=== PATIENT | male | born 1935 | race Caucasian/White ===

== ENCOUNTER 2017-06-17 12:15 | Emergency (ER) | payer MEDICARE, BC ==
[~2017-06-17] VITALS: Ht 180.3 cm; Wt 108.8 kg
[~2017-06-17 12:15] MED LIST: 1-ME1LIQ PO; CO Q60CA2 PO; CORE12.5 PO; COUM5TAB PO; DYAZ PO; EZET10 PO; LIVA1TAB PO; OMEG500C PO; SM A81CH CHEW
[2017-06-17] MEDS ORDERED: CARV12.52 PO (12:29)
[2017-06-17] MEDS ORDERED: COQ-100C5 PO (12:29)
[2017-06-17] MEDS ORDERED: ASPI81TA11 PO (12:29)
[2017-06-17] MEDS ORDERED: DYAZ37.5 PO (12:29)
[2017-06-17] MEDS ORDERED: VITA2000 PO (12:29)
[2017-06-17] MEDS ORDERED: AMLO10TA2 PO (12:29)
[2017-06-17] MEDS ORDERED: PRAV40TA2 PO (12:29)
[2017-06-17] MEDS ORDERED: OMEGCAP PO (12:29)
[2017-06-17 12:30] VITALS: BP 157/72; PULSE 69; RESP 18; TEMP 99.1; O2SAT 93
[2017-06-17 12:35] VITALS: RESP 16; O2SAT 93
[2017-06-17 12:57] LABS: AUTOMATED NEUTROPHIL # 4.5 TH/MM3 (1.8-7.7); BASOPHIL # 0.1 TH/MM3 (0-0.2); BASOPHIL % 0.7 % (0.0-2.0); EOSINOPHIL # 0.1 TH/MM3 (0-0.4); EOSINOPHIL % 1.4 % (0.0-4.0); HEMATOCRIT 48.1 % (39.0-51.0); HEMO FLAGS DIFF FINAL; LYMPH % 33.7 % (9.0-44.0); LYMPHOCYTE # 2.7 TH/MM3 (1.0-4.8); MEAN CELL VOLUME 92.9 FL (80.0-100.0); MEAN CORPUSCULAR HGB CONC 33.3 % (32.0-36.0); MONO % 8.1 % (0.0-8.0); NEUT % 56.1 % (16.0-70.0); PLATELET COUNT 220 TH/MM3 (150-450); RED BLOOD COUNT 5.18 MIL/MM3 (4.50-5.90); RED CELL DISTRIBUTION WIDTH 13.1 % (11.6-17.2); WHITE BLOOD COUNT 8.1 TH/MM3 (4.0-11.0)
[2017-06-17] MEDS ORDERED: SODIUM CHLORIDE 0.9% FLUSH 10 ML FLUSH IVF PRN (13:00)
[2017-06-17 13:06] LABS: CHLORIDE 104 MEQ/L (98-107); POTASSIUM 3.9 MEQ/L (3.5-5.1); SODIUM (NA) 138 MEQ/L (136-145)
[2017-06-17 13:10] LABS: ANION GAP 6 MEQ/L (5-15); BICARBONATE 27.9 MEQ/L (21.0-32.0); BLOOD UREA NITROGEN 26 MG/DL (7-18)
--- NOTE | 2017-06-17 13:11 | PD ---
HPI Chief Complaint: Respiratory Symptoms Time Seen by Provider: 12:36 Travel History International Travel<30 days: No Contact w/Intl Traveler<30days: No Traveled to known affect area: No History of Present Illness HPI This is an 82-year-old male who presents to the emergency department sent by his primary doctor because he was reporting shortness of breath for 2 months. Patient reports that he's been having trouble breathing intermittently for 2 months, feeling like he can't get a deep breath and feeling like he only take three quarters of a fall breath. His symptoms are constant, mild, with no associated fevers or chills. He denies any cough. He was diagnosed with pulmonary emboli in 2012 is not currently on any anticoagulation. [facility] Past Medical History Arthritis: Yes Heart Rhythm Problems: No Cancer: No Cardiovascular Problems: Yes High Cholesterol: Yes Chest Pain: Yes Congestive Heart Failure: No Coronary Artery Disease: Yes Endocrine: No Genitourinary: Yes Hypertension: Yes Immune Disorder: No Kidney Stones: Yes (12 YEARS AGO) Neurologic: No Psychiatric: No Reproductive: No Respiratory: No Past Surgical History Abdominal Surgery: No Cardiac Surgery: Yes (CARDIAC STINTS X2) Coronary Stent: Yes Ear Surgery: No Endocrine Surgery: No Eye Surgery: No Genitourinary Surgery: No Gynecologic Surgery: No Oral Surgery: No Thoracic Surgery: No Other Surgery: Yes Social History Alcohol Use: No Tobacco Use: No (QUIT 20 YEARS AGO) Substance Use: No Allergies-Medications (Allergen,Severity, Reaction): Coded Allergies: No Known Allergies (Verified , 06/17/17) Reported Meds & Prescriptions Reported Meds & Active Scripts Active Reported Vitamin D3 (Cholecalciferol) 2,000 Unit Cap 2,000 Units PO DAILY Pravastatin 40 Mg Tab 40 Mg PO HS Carvedilol 12.5 Mg Tab 12.5 Mg PO BID Dyazide (Triamterene-Hydrochlorothiazide) 37.5-25 Mg Cap 1 Cap PO DAILY Amlodipine (Amlodipine Besylate) 10 Mg Tab 10 Mg PO DAILY Aspirin EC (Aspirin) 81 Mg Tabdr 81 Mg PO DAILY [place]-3 Fish Oil/Vitamin (Fish Oil-Cholecalciferol) 1,000-1,000 Mg Cap 1 Cap PO DAILY Coq-10 Tr (Coenzyme Q10 (Ubidecarenone)) 100 Mg Cap 100 Mg PO DAILY Review of Systems Except as stated in HPI: all other systems reviewed are Neg Physical Exam Narrative GENERAL:Well appearing, no acute distress SKIN: Focused skin assessment warm and dry. HEAD: Atraumatic. Normocephalic. EYES: Pupils equal and round. No injection or drainage. ENT: Moist mucous membranes NECK: Trachea midline. CARDIOVASCULAR: Regular rate and rhythm. No murmur appreciated. RESPIRATORY: Clear to auscultation. Breath sounds equal bilaterally. GASTROINTESTINAL: Abdomen soft, non-tender, nondistended. MUSCULOSKELETAL: No obvious deformities. NEUROLOGICAL: Awake and alert. No obvious cranial nerve deficits. Moving all extremities. PSYCHIATRIC: Appropriate mood and affect; insight and judgment normal. Data Data Last Documented VS Vital Signs Date Time Temp Pulse Resp B/P (MAP) Pulse Ox O2 Delivery O2 Flow Rate FiO2 06/17/17 13:31 66 16 139/71 (93) 93 Room Air 06/17/17 12:30 99.1 Orders Orders Complete Blood Count With Diff (06/17/17 12:49) Comprehensive Metabolic Panel (06/17/17 12:49) B-Type Natriuretic Peptide (06/17/17 12:49) Iv Access Insert/Monitor (06/17/17 12:49) Ecg Monitoring (06/17/17 12:49) Oximetry (06/17/17 12:49) Oxygen Administration (06/17/17 12:49) Ct Pulmonary Angiogram (06/17/17 12:49) Sodium Chloride 0.9% Flush (Ns Flush) (06/17/17 13:00) Iohexol 350 Inj (Omnipaque 350 Inj) (06/17/17 13:49) Labs Laboratory Tests Test 06/17/17 12:45 White Blood Count 8.1 TH/MM3 Red Blood Count 5.18 MIL/MM3 Hemoglobin 16.0 GM/DL Hematocrit 48.1 % Mean Corpuscular Volume 92.9 FL Mean Corpuscular Hemoglobin 31.0 PG Mean Corpuscular Hemoglobin Concent 33.3 % Red Cell Distribution Width 13.1 % Platelet Count 220 TH/MM3 Mean Platelet Volume 7.6 FL Neutrophils (%) (Auto) 56.1 % Lymphocytes (%) (Auto) 33.7 % Monocytes (%) (Auto) 8.1 % Eosinophils (%) (Auto) 1.4 % Basophils (%) (Auto) 0.7 % Neutrophils # (Auto) 4.5 TH/MM3 Lymphocytes # (Auto) 2.7 TH/MM3 Monocytes # (Auto) 0.7 TH/MM3 Eosinophils # (Auto) 0.1 TH/MM3 Basophils # (Auto) 0.1 TH/MM3 CBC Comment DIFF FINAL Differential Comment Blood Urea Nitrogen 26 MG/DL Creatinine 1.30 MG/DL Random Glucose 117 MG/DL Total Protein 7.4 GM/DL Albumin 3.7 GM/DL Calcium Level 8.9 MG/DL Alkaline Phosphatase 88 U/L Aspartate Amino Transf (AST/SGOT) 11 U/L Alanine Aminotransferase (ALT/SGPT) 25 U/L Total Bilirubin 0.7 MG/DL Sodium Level 138 MEQ/L Potassium Level 3.9 MEQ/L Chloride Level 104 MEQ/L Carbon Dioxide Level 27.9 MEQ/L Anion Gap 6 MEQ/L Estimat Glomerular Filtration Rate 53 ML/MIN B-Type Natriuretic Peptide 28 PG/ML MDM Medical Decision Making Medical Screen Exam Complete: Yes Emergency Medical Condition: Yes Interpretation(s) Afebrile, mild hypertension, mild hypoxia No leukocytosis Electrolytes are reassuring BMP is normal Last [address] Angiography 06/17/17 1249 Signed Impressions: Service Date/Time: Saturday, June 17, 2017 13:42 - CONCLUSION: 1. No evidence of pulmonary embolus. 2. Chronic airway disease with subsegmental bronchiectasis 3. No acute consolidating infiltrate. 4. Calcific coronary artery disease 5. Left renal cyst. Corey Mg MD Differential Diagnosis Pulmonary embolism, COPD exacerbation, congestive heart failure, pneumonia Narrative Course This is an 82-year-old male who presents to the emergency department with some shortness of breath it's been going on for months that he discussed at his routine primary care physician's appointment. He has a history of pulmonary embolism that he was sent in to be evaluated. Labs and CT pulmonary angiogram are reassuring with no evidence of embolism. Patient will be prescribed an inhaler and can follow-up with his primary care physician. Diagnosis Primary Impression: Chronic airway disease Qualified Codes: J41.0 - Simple chronic bronchitis Patient Instructions: General Instructions Additional Instructions: If you develop severe chest pain, shortness of breath, sweating, lightheadedness , dizziness or difficulty breathing return to the emergency department immediately. Followup with your primary care physician in 2-3 days if your symptoms are not resolved. Med/Other Pt SpecificInfo: Prescription(s) given Scripts Albuterol 8.5 GM Inh (Proair Hfa 8.5 GM Inh) 90 Mcg/Act Aer 2 PUFF INH Q4-6H Y for SHORTNESS OF BREATH, #1 INHALER 0 Refills 108 mcg/actuation Prov: Tiffany Sullivan MD 06/17/17 Disposition: 01 DISCHARGE HOME Condition: Stable Tiffany Sullivan MD Jun 17, 2017 13:11
[2017-06-17 13:13] LABS: ALT (GPT) 25 U/L (12-78); AST (GOT) 11 U/L (15-37); GLOMERULAR FILTRATION RATE 53 ML/MIN (>89)
[2017-06-17 13:14] LABS: TOTAL BILIRUBIN ADULT 0.7 MG/DL (0.2-1.0)
[2017-06-17 13:16] LABS: ALKALINE PHOSPHATASE 88 U/L (45-117)
[2017-06-17 13:31] VITALS: BP 139/71; PULSE 66; RESP 16; O2SAT 93
[2017-06-17] MEDS ORDERED: IOHEXOL 350 MG/ML 10 ML VIAL (for RAD DIAG) IVCONTRAST ONE (13:49)
--- NOTE | 2017-06-17 14:13 | RADRPT ---
EXAM DATE/TIME: 06/17/2017 13:42 [facility] COMPARISON: No previous studies available for comparison. INDICATIONS : Increased shortness of breath for several months. IV CONTRAST: 65 cc Omnipaque 350 (iohexol) IV RADIATION DOSE: 20.99 CTDIvol (mGy) MEDICAL HISTORY : Cardiovascular disease. Hypertension. SURGICAL HISTORY : Coronary artery stent. ENCOUNTER: Initial ACUITY: 7 - 11 months PAIN SCALE: 0/10 LOCATION: chest TECHNIQUE: Volumetric scanning of the chest was performed using a pulmonary embolism protocol MIP images were re constructed. Using automated exposure control and adjustment of the mA and/or kV according to patien t size, radiation dose was kept as low as reasonably achievable to obtain optimal diagnostic quality images. DICOM format image data is available electronically for review and comparison. Follow-up recommendations for detected pulmonary nodules are based at a minimum on nodule size and pa tient risk factors according to Fleischner Society Guidelines. FINDINGS: PULMONARY ARTERIES: No filling defects are seen in the pulmonary arteries through the segmental level. LUNGS: Subsegmental airway disease with mild bronchiectasis and peribronchial scarring is identified. There is no evidence of consolidating airspace disease. PLEURAE: There is no pleural thickening or pleural effusion. MEDIASTINUM: Coronary arteries are heavily calcified. Heart is normal in size. No hilar or mediastinal masses. MUSCULOSKELETAL: Within normal limits for patient age. MISCELLANEOUS: The visualized upper abdominal organs demonstrate no acute abnormality. Left simple renal cyst is adriana ntified. CONCLUSION: 1. No evidence of pulmonary embolus. 2. Chronic airway disease with subsegmental bronchiectasis 3. No acute consolidating infiltrate. 4. Calcific coronary artery disease 5. Left renal cyst. Corey Mg MD on June 17, 2017 at 14:08 Board Certified Radiologist. This report was verified electronically.
[2017-06-17] MEDS ORDERED: ALBUAER3 INH (14:22)
[2017-06-17 14:31] VITALS: BP 141/76
--- NOTE | 2017-06-17 16:19 | EKG ---
Date Performed: 06/17/2017 Time Performed: 12:32:17 PTAGE: 82 years EKG: Sinus rhythm WITH FIRST DEGREE AV BLOCK INFERIOR MYOCARDIAL INFARCTION ABNORMAL ECG INTERPRETATION BASED ON A DEF KARMA AGE OF 40 YEARS COMPARED TO PREVIOUS TRACING FROM 01/07/13, NO SIGNIFICANT CHANGE DOCTOR: Layo Dupree Interpretating Date/Time 06/17/2017 16:18:38
== END 2017-06-17 14:33 | disposition home or self-care (01) ==
LOC: PHED 12:15
DX: J41.0 Simple chronic bronchitis (principal); R06.02 Shortness of breath; E78.5 Hyperlipidemia, unspecified; I25.10 Atherosclerotic heart disease of native coronary artery without angina pectoris; I10 Essential (primary) hypertension; Z87.891 Personal history of nicotine dependence
CPT/HCPCS: 71275; 80053; 83880; 85025; 93005; 99285; Q9967

== ENCOUNTER 2017-08-10 08:53 | Inpatient (IN) | payer MEDICARE, BC ==
[~2017-08-10] VITALS: Ht 177.8 cm; Wt 108.6 kg
[~2017-08-10 08:53] MED LIST changes: -1-ME1LIQ PO; +ALBUAER3 INH; +AMLO10TA2 PO; +ASPI81TA23 PO; +CARV12.52 PO; -CO Q60CA2 PO; +COQ-100C5 PO; -CORE12.5 PO; -COUM5TAB PO; -DYAZ PO; +DYAZ37.5 PO; -EZET10 PO; -LIVA1TAB PO; -OMEG500C PO; +OMEGCAP PO; +PRAV40TA2 PO; -SM A81CH CHEW; +VITA2000 PO
[2017-08-10 09:04] VITALS: BP 141/71; PULSE 108; RESP 20; TEMP 97.9; O2SAT 100
--- NOTE | 2017-08-10 09:17 | PD ---
HPI Chief Complaint: Musculoskeletal Complaint Time Seen by Provider: 09:17 Travel History International Travel<30 days: No Contact w/Intl Traveler<30days: No Traveled to known affect area: No History of Present Illness HPI -year-old male tripped and fell yesterday and landed mostly on his right side. He has significant bruising around his right elbow area and a small tear that he wrapped with bandage and the bleeding has stopped. Over he's here today because his right hip hurts when he tries to flex it. He also says that the pain radiates down to his proximal femoral area. He usually uses walker to ambulate and has been unable to do that because of the pain. Patient says that his insisted that he should come here since she was diagnosed with hip fracture 1 week ago herself. Slightly tachycardic in triage. Patient did not hit his head when he fell. He is awake and able to answer questions appropriately. PFSH Past Medical History Narrative Medical List of his past medical, surgical, social and family history is reviewed from the nursing note. Arthritis: Yes Heart Rhythm Problems: No Cancer: No Cardiovascular Problems: Yes High Cholesterol: Yes Chest Pain: Yes Congestive Heart Failure: No Coronary Artery Disease: Yes Endocrine: No Genitourinary: Yes Hypertension: Yes Immune Disorder: No Kidney Stones: Yes Neurologic: No Psychiatric: No Reproductive: No Respiratory: No Immunizations Current: Yes Myocardial Infarction: Yes Past Surgical History Abdominal Surgery: No Cardiac Surgery: Yes (CARDIAC STINTS X2) Coronary Stent: Yes (X 3) Ear Surgery: No Endocrine Surgery: No Eye Surgery: No Genitourinary Surgery: No Gynecologic Surgery: No Oral Surgery: No Thoracic Surgery: No Other Surgery: Yes Social History Alcohol Use: Yes (SOCIALLY) Tobacco Use: No (QUIT MANY YEARS AGO) Substance Use: No Allergies-Medications (Allergen,Severity, Reaction): Coded Allergies: No Known Allergies (Verified Adverse Reaction, Unknown, 08/10/17) Comments No known drug allergies. Reported Meds & Prescriptions Reported Meds & Active Scripts Active Reported Vitamin D3 (Cholecalciferol) 2,000 Unit Cap 2,000 Units PO DAILY Pravastatin 40 Mg Tab 40 Mg PO HS Carvedilol 12.5 Mg Tab 12.5 Mg PO BID Dyazide (Triamterene-Hydrochlorothiazide) 37.5-25 Mg Cap 1 Cap PO DAILY Aspirin EC (Aspirin) 81 Mg Tabdr 81 Mg PO DAILY [place]-3 Fish Oil/Vitamin (Fish Oil-Cholecalciferol) 1,000-1,000 Mg Cap 1 Cap PO DAILY Coq-10 Tr (Coenzyme Q10 (Ubidecarenone)) 100 Mg Cap 100 Mg PO DAILY Narrative Medication List of his home medications reviewed from the nursing note. Review of Systems Except as stated in HPI: all other systems reviewed are Neg Musculoskeletal: Positive: Pain Physical Exam Narrative GENERAL: Awake, alert, elderly, mild distress. SKIN: Focused skin assessment warm/dry. Extensive right elbow lateral ecchymosis HEAD: Atraumatic. Normocephalic. EYES: Pupils equal and round. No scleral icterus. No injection or drainage. ENT: No nasal bleeding or discharge. Mucous membranes pink and moist. NECK: Trachea midline. No JVD. CARDIOVASCULAR: Regular rate and rhythm. No murmur appreciated. RESPIRATORY: No accessory muscle use. Clear to auscultation. Breath sounds equal bilaterally. GASTROINTESTINAL: Abdomen soft, non-tender, nondistended. Hepatic and splenic margins not palpable. MUSCULOSKELETAL: No obvious deformities. No clubbing. No cyanosis. No edema. Right hip pain on flexion. Full range of motion at the elbow and wrist joint. NEUROLOGICAL: Awake and alert. No obvious cranial nerve deficits. Motor grossly within normal limits. Normal speech. PSYCHIATRIC: Appropriate mood and affect; insight and judgment normal. Data Data Last Documented VS Vital Signs Date Time Temp Pulse Resp B/P (MAP) Pulse Ox O2 Delivery O2 Flow Rate FiO2 08/10/17 11:04 65 20 102/53 (69) 93 08/10/17 09:04 97.9 Orders Orders Hip, Uni(Ap&Lat) W Ap Pelvis (08/10/17 ) Acetaminophen (Tylenol) (08/10/17 10:00) Ct Hip W/O Contrast (08/10/17 ) MDM Medical Decision Making Medical Screen Exam Complete: Yes Emergency Medical Condition: Yes Medical Record Reviewed: Yes Differential Diagnosis Hip fracture, femoral neck fracture, hip strain, musculoskeletal pain Narrative Course 12:09 PM x-ray was Suggestive of questionable subcapital neck fracture. CT scan confirms this. I just discussed with Dr. Wood from orthopedics who wants the patient to be transferred to the main hospital and nothing by mouth after midnight. He wanted the patient to be admitted to the medical service. Case was discussed with the hospitalist has accepted the patient. Procedures EKG Prior to Arrival: No Physician Communication Physician Communication Dr. Wood Diagnosis Primary Impression: Hip fracture, right Qualified Codes: S72.001A - Fracture of unspecified part of neck of right femur, initial encounter for closed fracture Admitting Information Admitting Physician Requests: Admit Roselia Camacho MD Aug 10, 2017 09:17
[2017-08-10] MEDS ORDERED: ACETAMINOPHEN 325 MG TAB PO ONE (10:00)
[2017-08-10 11:04] VITALS: BP 102/53; PULSE 65; RESP 20; O2SAT 93
--- NOTE | 2017-08-10 11:07 | RADRPT ---
EXAM DATE/TIME: 08/10/2017 10:46 [facility] COMPARISON: No previous studies available for comparison. INDICATIONS : Fell last night, has right hip pain MEDICAL HISTORY : None. SURGICAL HISTORY : None. ENCOUNTER: Initial ACUITY: 1 day PAIN SCORE: 6/10 LOCATION: Right hip FINDINGS: Examination of the right hip was performed with AP Pelvis. Moderate degenerative changes of each hip greater on the left. Questionable subcapital fracture of the right. The acetabulum is grossly intact . Degenerative changes lower lumbar spine. CONCLUSION: 1. Questionable subcapital femoral neck fracture on the right. Noncontrast CT scan may be warranted. 2. Osteoarthritis of the chest. Uriah Munguia MD on August 10, 2017 at 11:04 Board Certified Radiologist. This report was verified electronically.
--- NOTE | 2017-08-10 11:52 | RADRPT ---
EXAM DATE/TIME: 08/10/2017 11:26 [facility] COMPARISON: No previous studies available for comparison. INDICATIONS : Fall. Right hip pain. Abnormal hip xray. RADIATION DOSE: 22.18 CTDIvol (mGy) MEDICAL HISTORY : Cardiovascular disease. Hypertension. Deep venous thrombosis.Renal stone. SURGICAL HISTORY : Coronary artery stent. ENCOUNTER: Initial ACUITY: 1 day PAIN SCALE: 5/10 LOCATION: Right hip TECHNIQUE: Volumetric scanning of the hip was performed. Using automated exposure control and adjustment of the mA and/or kV according to patient size, radiation dose was kept as low as reasonably achievable to o btain optimal diagnostic quality images. DICOM format image data is available electronically for rev iew and comparison. FINDINGS: BONES: Subcapital femoral neck fracture. No displacement. Mild degenerative changes right hip and moderate d egenerative changes left hip. JOINTS: No evidence of joint narrowing or effusion. SOFT TISSUES: Muscles, tendons and neurovascular structures are grossly unremarkable. No evidence of mass, organize d fluid collection, or foreign body. CONCLUSION: 1. Subcapital right femoral neck fracture. Uriah Munguia MD on August 10, 2017 at 11:47 Board Certified Radiologist. This report was verified electronically.
[2017-08-10] MEDS ORDERED: NALOXONE HCL 0.4 MG/ML AMP IV PUSH PRN (12:15)
[2017-08-10] MEDS ORDERED: SODIUM CHLORIDE 0.9% FLUSH 10 ML FLUSH IV FLUSH PRN (12:15)
[2017-08-10] MEDS ORDERED: SENNOSIDES 8.6 MG TAB PO PRN (12:15)
[2017-08-10] MEDS ORDERED: ACETAMINOPHEN 325 MG TAB PO PRN (13:00)
[2017-08-10] MEDS ORDERED: ONDANSETRON HCL 4 MG/2 ML VIAL IVP PRN ×2 (13:00→18:45)
--- NOTE | 2017-08-10 13:17 | HHI.HP ---
[facility] Finesse Charles MD Admission Diagnosis right femoral neck fracture Diagnoses: (1) Hip fracture, right Chief Complaint: Right hip pain Travel History International Travel<30 Days: No Contact w/Intl Traveler <30 Da: No Traveled to Known Affected Are: No History of Present Illness Mr. Patel is an 82-year-old male patient with a known medical history of CAD with MD and cardiac stent placement, HTN and hyperlipidemia who presented to the ED with complaints of right hip pain. Patient states he sustained a fall yesterday while home, tripping and falling on his right elbow and hip. He denies hitting his head or any LOC, dizziness or lightheadedness. Patient is able to move his right foot internally and externally without any pain. He states that he has pain with mobility and lifting his right leg. Right lower extremity DP and pedal pulses present, warm to touch with no edema. Denies numbness or tingling. Denies any recent illness including fever, chills, headache, chest pain, abdominal pain, n/v/d or dysuria. CT of the right lower extremity showing a subcapital right femoral neck fracture. Review of Systems Constitutional: DENIES: Fever, Chills Eyes: DENIES: Blurred vision Respiratory: DENIES: Cough, Shortness of breath Cardiovascular: DENIES: Chest pain, Syncope Gastrointestinal: DENIES: Abdominal pain, Bloody stools, Constipation, Diarrhea , Nausea, Vomiting Musculoskeletal: COMPLAINS OF: Joint pain (right leg) Psychiatric: COMPLAINS OF: Anxiety Except as stated in HPI: all other systems reviewed are Neg Past Family Social History Past Medical History CAD with history of MD and cardiac stent placement 2013 History of PE 2013 Hypertension Hyperlipidemia Arthritis Past Surgical History Cardiac stent placement Reported Medications Active Reported Vitamin D3 (Cholecalciferol) 2,000 Unit Cap 2,000 Units PO DAILY Pravastatin 40 Mg Tab 40 Mg PO HS Carvedilol 12.5 Mg Tab 12.5 Mg PO BID Dyazide (Triamterene-Hydrochlorothiazide) 37.5-25 Mg Cap 1 Cap PO DAILY Aspirin EC (Aspirin) 81 Mg Tabdr 81 Mg PO DAILY [place]-3 Fish Oil/Vitamin (Fish Oil-Cholecalciferol) 1,000-1,000 Mg Cap 1 Cap PO DAILY Coq-10 Tr (Coenzyme Q10 (Ubidecarenone)) 100 Mg Cap 100 Mg PO DAILY Allergies: Coded Allergies: No Known Allergies (Verified Allergy, Unknown, 08/10/17) Active Ordered Medications Current Medications Medications (Trade) Dose Ordered Sig/Gail Route Start Time Stop Time Status Last Admin (NS Flush) 2 ml UNSCH PRN IV FLUSH 08/10/17 12:15 (NS Flush) 2 ml BID IV FLUSH 08/10/17 21:00 (Tylenol) 650 mg Q4H PRN PO 08/10/17 13:00 (Zofran Inj) 4 mg Q6H PRN IVP 08/10/17 13:00 (Narcan Inj) 0.4 mg UNSCH PRN IV PUSH 08/10/17 12:15 (Senokot) 17.2 mg Q12H PRN PO 08/10/17 12:15 (Coreg) 12.5 mg BID PO 08/10/17 21:00 (Pravachol) 40 mg HS PO 08/10/17 21:00 (Dyazide 37.5-25 Mg) 1 cap DAILY PO 08/11/17 09:00 Family History Denies any significant family medical history. Social History Denies any tobacco use. Does admit to occasional alcohol use. Denies any illicit drug use. Physical Exam Vital Signs Vital Signs Date Time Temp Pulse Resp B/P (MAP) Pulse Ox O2 Delivery O2 Flow Rate FiO2 08/10/17 11:04 65 20 102/53 (69) 93 08/10/17 09:04 97.9 108 20 141/71 (94) 100 Physical Exam GENERAL: This is a well-nourished, well-developed male patient, lying in bed in no apparent distress. SKIN: No rashes. Multiple areas of ecchymoses on upper and lower extremities 2/ 2 fall. Multiple abrasions to right lower knee and leg. Warm and dry. HEENt: Normocephalic. Pupils equal round and reactive. Extraocular motions intact. No scleral icterus. No injection or drainage. Nose without bleeding. Throat without erythema, tonsillar hypertrophy or exudate. Uvula midline. Airway patent. NECK: Trachea midline. No JVD or lymphadenopathy. Supple. CARDIOVASCULAR: Regular rate and rhythm without murmurs, gallops, or rubs. RESPIRATORY: Clear to auscultation. Breath sounds equal bilaterally. No wheezes , rales, or rhonchi. GASTROINTESTINAL: Abdomen soft, non-tender, nondistended. No guarding. MUSCULOSKELETAL: Extremities without clubbing, cyanosis, or edema. No joint tenderness, effusion, or edema noted. NEUROLOGICAL: Awake and alert. Cranial nerves II through XII intact. Motor and sensory grossly within normal limits. Five out of 5 muscle strength in all muscle groups. Normal speech. Imaging Last Impressions Lower Extremity CT 08/10/17 0000 Signed Impressions: Service Date/Time: Thursday, August 10, 2017 11:26 - CONCLUSION: 1. Subcapital right femoral neck fracture. Uriah Munguia MD Hip and Pelvis X-Ray 08/10/17 0000 Signed Impressions: Service Date/Time: Thursday, August 10, 2017 10:46 - CONCLUSION: 1. Questionable subcapital femoral neck fracture on the right. Noncontrast CT scan may be warranted. 2. Osteoarthritis of the chest. Uriah Munguia MD Caprinreid VTE Risk Assessment Caprini VTE Risk Assessment: Mod/High Risk (score >= 2) Caprini Risk Assessment Model Point Value = 1 Point Value = 2 Point Value = 3 Point Value = 5 Age 41-60 Minor surgery BMI > 25 kg/m2 Swollen legs Varicose veins or History of unexplained or recurrent spontaneous Oral contraceptives or hormone replacement Sepsis (< 1 month) Serious lung disease, including pneumonia (< 1 month) Abnormal pulmonary function Acute myocardial infarction Congestive heart failure (< 1 month) History of inflammatory bowel disease Medical patient at bed rest Age 61-74 Arthroscopic surgery Major open surgery (> 45 min) Laparoscopic surgery (> 45 min) Malignancy Confined to bed (> 72 hours) Immobilizing plaster cast Central venous access Age >= 75 History of VTE Family history of VTE Factor V Leiden Prothrombin [id number] Lupus anticoagulant Anticardiolipin antibodies Elevated serum homocysteine Heparin-induced thrombocytopenia Other congenital or acquired thrombophilia Stroke (< 1 month) Elective arthroplasty Hip, pelvis, or leg fracture Acute spinal cord injury (< 1 month) Prophylaxis Regimen Total Risk Factor Score Risk Level Prophylaxis Regimen 0-1 Low Early ambulation 2 Moderate Order ONE of the following: *Sequential Compression Device (SCD) *Heparin 5000 units SQ BID 3-4 Higher Order ONE of the following medications: *Heparin 5000 units SQ TID *Enoxaparin/Lovenox 40 mg SQ daily (WT < 150 kg, CrCl > 30 mL/min) *Enoxaparin/Lovenox 30 mg SQ daily (WT < 150 kg, CrCl > 10-29 mL/min) *Enoxaparin/Lovenox 30 mg SQ BID (WT < 150 kg, CrCl > 30 mL/min) AND/OR *Sequential Compression Device (SCD) 5 or more Highest Order ONE of the following medications: *Heparin 5000 units SQ TID (Preferred with Epidurals) *Enoxaparin/Lovenox 40 mg SQ daily (WT < 150 kg, CrCl > 30 mL/min) *Enoxaparin/Lovenox 30 mg SQ daily (WT < 150 kg, CrCl > 10-29 mL/min) *Enoxaparin/Lovenox 30 mg SQ BID (WT < 150 kg, CrCl > 30 mL/min) AND *Sequential Compression Device (SCD) Assessment and Plan Problem List: (1) Hip fracture, right ICD Code: S72.001A - Fracture of unspecified part of neck of right femur, initial encounter for closed fracture Status: Acute Plan: Patient sustained a fall yesterday, CT of right lower extremity showing subcapital right femoral neck fracture. Consult placed to orthopedic surgeon, appreciate further input and recommendations. Current orders to transfer patient to [facility] to undergo possible surgery. (2) CAD (coronary artery disease) ICD Code: I25.10 - Atherosclerotic heart disease of [place] coronary artery without angina pectoris Plan: Continue home Carvedilol. Continue cardiac telemetry, monitor for any arrhythmias. (3) Hyperlipidemia ICD Code: E78.5 - Hyperlipidemia, unspecified Plan: Continue home Pravastatin. (4) Hypertension ICD Code: I10 - Essential (primary) hypertension Plan: Continue home Dyazide. Monitor BP trends. DVT Prophylaxis: SCDs. Chemical prophylaxis per orthopedic surgeon recommendations. Code Status Full code. Discussed Condition With Patient. Physician Certification 2 Midnight Certification Type: Admission for Inpatient Services Order for Inpatient Services The services are ordered in accordance with Medicare regulations or non- Medicare payer requirements, as applicable. In the case of services not specified as inpatient-only, they are appropriately provided as inpatient services in accordance with the 2-midnight benchmark. Estimated LOS (days): 2 2 days is the estimated time the patient will need to remain in the hospital, assuming treatment plan goals are met and no additional complications. Post-Hospital Plan: Not yet determined Problem Qualifiers (1) Hip fracture, right: Qualified Codes: S72.001A - Fracture of unspecified part of neck of right femur , initial encounter for closed fracture Berenice Ramos Aug 10, 2017 13:17
[2017-08-10 14:00] VITALS: BP 121/63; PULSE 68; RESP 15; TEMP 97.2; O2SAT 95
[2017-08-10 16:42] LABS: AUTOMATED NEUTROPHIL # 4.4 TH/MM3 (1.8-7.7); BASOPHIL # 0.1 TH/MM3 (0-0.2); BASOPHIL % 0.8 % (0.0-2.0); EOSINOPHIL # 0.2 TH/MM3 (0-0.4); EOSINOPHIL % 2.3 % (0.0-4.0); HEMATOCRIT 42.1 % (39.0-51.0); HEMO FLAGS DIFF FINAL; LYMPH % 32.5 % (9.0-44.0); LYMPHOCYTE # 2.6 TH/MM3 (1.0-4.8); MEAN CELL VOLUME 93.4 FL (80.0-100.0); MEAN CORPUSCULAR HEMOGLOBIN 32.6 PG (27.0-34.0); MEAN CORPUSCULAR HGB CONC 34.9 % (32.0-36.0); MONO % 10.2 % (0.0-8.0); NEUT % 54.2 % (16.0-70.0); PLATELET COUNT 191 TH/MM3 (150-450); RED CELL DISTRIBUTION WIDTH 13.8 % (11.6-17.2); WHITE BLOOD COUNT 8.1 TH/MM3 (4.0-11.0)
[2017-08-10 16:49] LABS: APTT (PATIENT) 25.4 SEC (24.3-30.1); INTERNATIONAL NORMALIZED RATIO 1.1 RATIO; PROTHROMBIN TIME - PATIENT 11.4 SEC (9.8-11.6)
[2017-08-10 16:59] LABS: BICARBONATE 28.4 MEQ/L (21.0-32.0); POTASSIUM 3.2 MEQ/L (3.5-5.1)
[2017-08-10] MEDS ORDERED: POVIDONE IODINE 5% (ANTISEPSIS KIT) 4 APPLICATIONS EACH NARE PRN (17:00)
[2017-08-10] MEDS ORDERED: LACTATED RINGER'S 1000 ML IV PRN (17:00)
[2017-08-10] MEDS ORDERED: CHLORHEXIDINE GLUCONATE 2 % 1 PACK (2 CLOTHS) TOPICAL PRN (17:00)
[2017-08-10] MEDS ORDERED: SODIUM CHLORID 0.9% 500 ML IV PRN (17:00)
[2017-08-10] MEDS ORDERED: FAMOTIDINE 20 MG/2 ML VIAL ONE (17:36)
[2017-08-10] MEDS ORDERED: METOCLOPRAMIDE HCL 10 MG/2 ML VIAL ONE (17:36)
[2017-08-10] MEDS ORDERED: GENTAMICIN SULFATE 80 MG/2 ML VIAL ONE (18:16)
[2017-08-10] MEDS: DEXT 5%-NACL 0.45% 1000 ML INJ 1,000 ML IV SCH (18:31)
[2017-08-10] MEDS ORDERED: HYDR-3288 PO (18:32)
[2017-08-10] MEDS ORDERED: ASPI81CH6 CHEW (18:33)
[2017-08-10] MEDS ORDERED: ENOX40P SQ (18:33)
[2017-08-10] MEDS ORDERED: ACETAMINOPHEN/HYDROcodone 325 MG/7.5 MG TAB PO PRN ×2 (18:45)
[2017-08-10] MEDS ORDERED: MISCELLANEOUS PHARMACY INFORMATION XX ONE (18:45)
[2017-08-10] MEDS ORDERED: MORPHINE SULFATE 4 MG/ML INJ IV PUSH PRN (18:45)
[2017-08-10] MEDS ORDERED: Post-op Orders (for Pharmacy) MISC XX ONE (18:45)
[2017-08-10] MEDS ORDERED: diphenhydrAMINE HCL 25 MG CAP PO PRN (18:45)
[2017-08-10] MEDS ORDERED: MISCELLANEOUS NURSING INFORMATION XX PRN (18:45)
--- NOTE | 2017-08-10 18:49 | RADRPT ---
EXAM DATE/TIME: 08/10/2017 18:22 [place] COMPARISON: No previous studies available for comparison. INDICATIONS : Right hip pinning. MEDICAL HISTORY : None. SURGICAL HISTORY : None. ENCOUNTER: Initial ACUITY: 1 day PAIN SCORE: 0/10 LOCATION: Right hip FINDINGS: 2 fluoroscopic images are provided. No compression screw fixation of subcapital femoral neck fracture . There is anatomic alignment. Hardware appears intact and well positioned. No new acute bony fractur e. CONCLUSION: 1. Status post compression screw fixation of subcapital femoral neck fracture in anatomic alignment w ithout additional fracture. Otto Thomas MD on August 10, 2017 at 18:45 Board Certified Radiologist. This report was verified electronically.
--- NOTE | 2017-08-10 18:59 | MB ---
cc: HAO BOCANEGRA MD DATE OF CONSULTATION: 08/10/2017. REASON FOR CONSULTATION: Right hip pain. HISTORY OF PRESENT ILLNESS: The patient is an 82-year-old male who had a fall at home injuring the right hip. He had significant pain after the injury. He was unable stand, bear weight or move that hip. Any movement causes exacerbation of symptoms with a sharp shooting pain. He went to [facility]. X-rays confirmed evidence of a right femoral neck fracture. Orthopedic surgery was consulted. The patient was admitted to the medical service. The pain is constant and severe and worsening with any movement. No numbness or tingling. symptoms. PAST MEDICAL HISTORY: Positive for: 1. Heart disease. 2. Myocardial infarction. 3. Cardiac stent. 4. Hypertension. 5. Hyperlipidemia. 6. Osteoarthritis. 7. History of pulmonary embolism. MEDICATIONS: 1. Pravastatin. 2. Carvedilol. 3. Dyazide. 4. Aspirin. 5. Fritch 3. 6. Vitamin D3. ALLERGIES: NO KNOWN DRUG ALLERGIES. FAMILY HISTORY: Reviewed and unremarkable. SOCIAL HISTORY: No tobacco. Occasionally drinks alcohol. No drugs. REVIEW OF SYSTEMS: Negative for ten systems other than the history of present illness. PHYSICAL EXAMINATION: VITAL SIGNS: The patient's temperature is 97.9, pulse is 100, respirations 20, blood pressure 140/70. GENERAL: In general, the patient is awake and alert and lying in bed in no acute distress, a well-nourished male. HEAD, EYES, EARS, NOSE, THROAT: Normocephalic and atraumatic. Pupils round and reactive to light. Extraocular muscles intact. NECK: The neck is supple. LUNGS: Clear. HEART: Regular rate and rhythm. ABDOMEN: Abdomen soft and nontender. SKIN: Superficial abrasion of the right knee. EXTREMITIES: He has pain with any passive motion of the right hip. He can flex and extend his ankle and toes distally. IMAGING STUDIES: X-rays of the right hip show a subcapital right femoral neck fracture. IMPRESSION: An 82-year-old male status post fall with right subcapital femoral neck fracture. PLAN: I discussed the diagnosis and treatment options. I spoke about the options of nonoperative treatment versus surgery. Surgery would consist of internal fixation with screw fixation. The right of surgery were discussed, which include but are not limited to anesthesia, bleeding, infection, damage to nerve or blood vessels, pain, failure of hardware, blood clots, pulmonary embolism and even . The patient favors the benefits over the risks. He did wish to proceed with surgery. A written consent has been obtained. The surgical site has been marked. MD FRANCISCO Maddox/RYLEE /6:26 PM /6:42 PM MTDD
[2017-08-10] MEDS ORDERED: DO NOT ADM ANY ANTICOAGULANT DRUGS PRN (19:00)
--- NOTE | 2017-08-10 19:15 | MP ---
cc: HAO BOCANEGRA DATE OF SURGERY 08/10/2017 PREOPERATIVE DIAGNOSIS Right femoral neck fracture. POSTOPERATIVE DIAGNOSES Right femoral neck fracture. PROCEDURE Percutaneous screw fixation right femoral neck fracture. SURGEON Dr. Hao Bocanegra STARS COORDINATOR LAUREN Shea ANESTHESIA Spinal. ESTIMATED BLOOD LOSS Less than 50 mL COMPLICATIONS None IMPLANTS USED Synthes. JUSTIFICATION The patient is an 82-year-old male who fell sustaining a right femoral neck fracture. He went to [facility]. X-rays confirmed the above-named findings. Orthopedic surgery was consulted. The patient counseled as to the risks, benefits and alternatives to the above named proposed surgical procedure and he did wish to proceed with surgery. PROCEDURE IN DETAIL A written consent was obtained. The patient was identified by name, taken to the operating room, placed supine on the operating table. Spinal anesthesia was administered as well as 2 grams of IV Ancef. The right foot was placed in padded traction boot. The right lower extremity was prepped and draped using isopropyl alcohol, Hibiclens solution and Chloraprep solution. After time-out was performed, using assistance with fluoroscopic guidance, a longitudinal incision was made over the lateral aspect of the right hip. Using fluoroscopic imaging three guidewires were then drilled transversing the femoral neck fracture and obtained purchase in the femoral head. Subsequently three Synthes 7.3-mm partially threaded stainless steel cannulated screws were inserted over the guidewires for fixation. The guidewires were removed. Fluoroscopic imaging confirmed hardware placement with fracture reduction. The surgical wound was thoroughly irrigated with sterile saline solution. The subcutaneous layer closed with 2-0 Vicryl suture, the skin closed with Dermabond. Sterile dressing applied. The patient tolerated the procedure well with no intraoperative complications noted. Jay Bustamante physician physicians assistant certified was present during the entire procedure to include patient positioning and the procedure itself. The medical necessity of physician physicians assistant was indicated in this case to assist me with appropriate positioning of the patient along with manipulation and fracture reduction and implantation of the screw fixation. Hao Bocanegra MD JWAllen/KK /6:29 PM /7:06 PM
[2017-08-10 20:54] VITALS: BP 126/63; PULSE 62; RESP 18; TEMP 98.3; O2SAT 97
[2017-08-10] MEDS: CARVEDILOL 12.5 MG TAB PO SCH (21:14)
[2017-08-10] MEDS: PRAVASTATIN SOD 40 MG TAB PO SCH (21:14)
[2017-08-10] MEDS: SODIUM CHLORIDE 0.9% FLUSH 10 ML FLUSH IV FLUSH SCH (21:14)
[2017-08-10] MEDS: DOCUSATE SODIUM 50 MG/SENNA 8.6 MG TAB PO SCH (21:14)
[2017-08-10 23:53] VITALS: BP 115/56; PULSE 64; RESP 18; TEMP 98.8; O2SAT 97
[2017-08-11] MEDS: DEXT 5%-NACL 0.45% 1000 ML INJ 1,000 ML IV SCH ×2 (03:45→14:31)
[2017-08-11 04:29] VITALS: BP 153/89; PULSE 56; RESP 18; TEMP 96.7; O2SAT 95
[2017-08-11 07:27] LABS: AUTOMATED NEUTROPHIL # 5.1 TH/MM3 (1.8-7.7); BASOPHIL % 0.6 % (0.0-2.0); EOSINOPHIL # 0.2 TH/MM3 (0-0.4); EOSINOPHIL % 2.1 % (0.0-4.0); HEMATOCRIT 41.5 % (39.0-51.0); HEMO FLAGS DIFF FINAL; LYMPH % 25.4 % (9.0-44.0); MEAN CELL VOLUME 93.1 FL (80.0-100.0); MEAN CORPUSCULAR HEMOGLOBIN 32.6 PG (27.0-34.0); MONO % 7.9 % (0.0-8.0); PLATELET COUNT 171 TH/MM3 (150-450); RED BLOOD COUNT 4.46 MIL/MM3 (4.50-5.90); RED CELL DISTRIBUTION WIDTH 13.7 % (11.6-17.2)
[2017-08-11 07:56] LABS: BICARBONATE 27.9 MEQ/L (21.0-32.0); POTASSIUM 3.1 MEQ/L (3.5-5.1)
[2017-08-11 08:00] VITALS: BP 152/94; PULSE 62; RESP 18; TEMP 98.3; O2SAT 94
[2017-08-11] MEDS: DOCUSATE SODIUM 50 MG/SENNA 8.6 MG TAB PO SCH ×2 (08:57→20:22)
[2017-08-11] MEDS: MULTIVITAMINS/MINERALS THERAPEUTIC TAB PO SCH (08:57)
[2017-08-11] MEDS: TRIAMTERENE/HCTZ 37.5 MG/25 MG CAP PO SCH (08:57)
[2017-08-11] MEDS: CARVEDILOL 12.5 MG TAB PO SCH ×2 (08:57→20:22)
[2017-08-11] MEDS: SODIUM CHLORIDE 0.9% FLUSH 10 ML FLUSH IV FLUSH SCH ×2 (09:00→20:22)
[2017-08-11 11:48] VITALS: BP 122/59; PULSE 58; RESP 20; TEMP 98.2; O2SAT 93
--- NOTE | 2017-08-11 11:52 | HHI.PR ---
Subjective Remarks f/u for hip fracture patient seen after surgery he had no complaints. He stated he is doing well. Patient eating breakfast. She stated that he accidentally fell down. Deny chest pain, palpitation, SOB, lightheadedness or dizziness. Objective Vitals Vital Signs Date Time Temp Pulse Resp B/P (MAP) Pulse Ox O2 Delivery O2 Flow Rate FiO2 08/11/17 08:00 98.3 62 18 152/94 (113) 94 08/11/17 04:29 96.7 56 18 153/89 (110) 95 08/10/17 23:53 98.8 64 18 115/56 (75) 97 08/10/17 20:54 98.3 62 18 126/63 (84) 97 08/10/17 20:19 59 21 121/56 (77) 97 Nasal Cannula 2 08/10/17 20:00 59 22 123/58 (79) 97 Nasal Cannula 2 08/10/17 19:45 57 21 107/60 (76) 97 Nasal Cannula 2 08/10/17 19:30 54 21 102/52 (69) 97 Nasal Cannula 2 08/10/17 19:13 97.9 53 19 98/54 (69) 96 Nasal Cannula 2 08/10/17 19:00 56 18 94/54 (67) 98 Nasal Cannula 2 08/10/17 18:45 59 16 92/50 (64) 97 Nasal Cannula 2 08/10/17 18:35 98.2 64 14 83/49 (60) 96 Nasal Cannula 2 08/10/17 17:00 63 14 137/66 (89) 92 08/10/17 14:00 97.2 68 15 121/63 (82) 95 08/10/17 13:15 I/O 08/10/17 08/10/17 08/10/17 08/11/17 08/11/17 08/11/17 07:00 15:00 23:00 07:00 15:00 23:00 Intake Total 620 ml 1431 ml Output Total 10 ml 750 ml Balance 610 ml 681 ml Intake Oral 120 ml 720 ml IV Total 711 ml Other 500 ml Output Urine Total 750 ml Estimated Blood Loss 10 ml # Voids 1 # Bowel Movements 0 0 Result Diagram: 08/11/17 0600 08/11/17 0600 Objective Remarks GENERAL: in NAD CARDIOVASCULAR: Regular rate and rhythm without murmurs, gallops, or rubs. RESPIRATORY: Breath sounds equal bilaterally. No accessory muscle use. GASTROINTESTINAL: Abdomen soft, non-tender, nondistended. MUSCULOSKELETAL: No cyanosis, or edema. Medications and IVs Current Medications Acetaminophen (Tylenol) 650 mg ONCE ONCE PO Last administered on 08/10/17 10: 07; Start 08/10/17 at 10:00; Stop 08/10/17 at 10:01; Status DC Sodium Chloride (NS Flush) 2 ml UNSCH PRN IV FLUSH FLUSH AFTER USING IV ACCESS ; Start 08/10/17 at 12:15 Sodium Chloride (NS Flush) 2 ml BID IV FLUSH Last administered on 08/10/17 21: 14; Start 08/10/17 at 21:00 Acetaminophen (Tylenol) 650 mg Q4H PRN PO TEMP > 100.4; Start 08/10/17 at 13:00 Ondansetron HCl (Zofran Inj) 4 mg Q6H PRN IVP NAUSEA OR VOMITING; Start at 13:00; Stop 08/10/17 at 18:41; Status DC Naloxone HCl (Narcan Inj) 0.4 mg UNSCH PRN IV PUSH SEE LABEL COMMENTS; Start 08/10/17 at 12:15 Sennosides (Senokot) 17.2 mg Q12H PRN PO Moderate constipation; Start 08/10/17 at 12:15 Carvedilol (Coreg) 12.5 mg BID PO Last administered on 08/11/17 08:57; Start 08/10/17 at 21:00 Pravastatin Sodium (Pravachol) 40 mg HS PO Last administered on 08/10/17 21:14 ; Start 08/10/17 at 21:00 Triamterene/HCTZ (Dyazide 37.5-25 Mg) 1 cap DAILY PO Last administered on 08:57; Start 08/11/17 at 09:00 Lactated Ringer's 1,000 ml @ 30 mls/hr Q24H PRN IV SEE LABEL COMMENTS; Start 08/10/17 at 17:00; Stop 08/13/17 at 16:59 Sodium Chloride 500 ml @ 30 mls/hr [id number] PRN IV SEE LABEL COMMENTS; Start at 17:00; Stop 08/13/17 at 16:59 Povidone Iodine (Betadine 5% Antisepsis Kit) 1 applic SOIL FERTILITY SPECIALIST PRN EACH NARE SEE LABEL COMMENTS; Start 08/10/17 at 17:00; Stop 08/13/17 at 16:59 Chlorhexidine Gluconate (Chlorhexidine 2% Cloth) 3 pack SOIL FERTILITY SPECIALIST PRN TOPICAL SEE LABEL COMMENTS; Start 08/10/17 at 17:00; Stop 08/13/17 at 16:59 Metoclopramide HCl (Reglan Inj) 10 mg STK-MED ONCE .ROUTE ; Start 08/10/17 at 17 :36; Stop 08/10/17 at 17:37; Status DC Famotidine (Pepcid Inj) 20 mg STK-MED ONCE .ROUTE ; Start 08/10/17 at 17:36; Stop 08/10/17 at 17:37; Status DC Gentamicin Sulfate (Gentamicin Inj) 240 mg STK-MED ONCE .ROUTE ; Start 08/10/17 at 18:16; Stop 08/10/17 at 18:17; Status DC Dextrose/Sodium Chloride 1,000 ml @ 100 mls/hr Q10H IV Last administered on 18:31; Start 08/10/17 at 18:31 Miscellaneous Information (Post-op Orders (for Pharmacy)) STAT ONCE XX ; Start 08/10/17 at 18:45; Stop 08/10/17 at 18:51; Status DC Enoxaparin Sodium (Lovenox Inj) 40 mg Q24H SQ ; Start 08/11/17 at 17:35; Stop 08/20/17 at 17:36 Senna/Docusate Sodium (Yulissa-Colace) 1 tab BID PO Last administered on 08:57; Start 08/10/17 at 21:00 Cefazolin Sodium 1000 mg/Sodium Chloride 100 ml @ 200 mls/hr Q8H IV Last administered on 08/11/17 03:44; Start 08/10/17 at 20:00 Miscellaneous Information UNSCH PRN XX SEE LABEL COMMENTS; Start 08/10/17 at 18:45 Miscellaneous Medication ([facility]) ONCE ONCE XX ; Start 08/10/17 at 18:45; Stop 08/10/17 at 18:51; Status DC Acetaminophen/ Hydrocodone Bitart ([place] 7.5-325 Mg) 1 tab Q4H PRN PO PAIN LESS THAN 5 ON SCALE; Start 08/10/17 at 18:45 Acetaminophen/ Hydrocodone Bitart ([place] 7.5-325 Mg) 2 tab Q6H PRN PO PAIN GREATER THAN/EQUAL TO 5; Start 08/10/17 at 18:45 Morphine Sulfate (Morphine Inj) 3 mg Q3H PRN IV PUSH Pain after EQUIPMENT DRIVER discontinued; Start 08/10/17 at 18:45 Ondansetron HCl (Zofran Inj) 4 mg Q4H PRN IVP NAUSEA OR VOMITING; Start at 18:45 Multivitamins/ Minerals Therapeutic (Theragran M Tab) 1 tab DAILY PO Last administered on 08/11/17t 08:57; Start 08/11/17 at 09:00 Diphenhydramine HCl (Benadryl) 25 mg Q6H PRN PO ITCHING; Start 08/10/17 at 18: 45 Miscellaneous Information ALL NURSING DEPARTME... UNSCH PRN .XX SEE LABEL COMMENTS; Start 08/10/17 at 19:00; Stop 08/11/17 at 18:59 A/P Problem List: (1) Hip fracture, right ICD Code: S72.001A - Fracture of unspecified part of neck of right femur, initial encounter for closed fracture Status: Acute (2) CAD (coronary artery disease) ICD Code: I25.10 - Atherosclerotic heart disease of [place] coronary artery without angina pectoris (3) Hyperlipidemia ICD Code: E78.5 - Hyperlipidemia, unspecified (4) Hypertension ICD Code: I10 - Essential (primary) hypertension Assessment and Plan 82-year-old male presenting mechanical fall Hip fracture, right - Fracture of unspecified part of neck of right femur, initial encounter for closed fracture -CT of right lower extremity showing subcapital right femoral neck fracture. -s/p Percutaneous screw fixation right femoral neck fracture on 08/10 CAD (coronary artery disease) -Continue home Carvedilol. Continue cardiac telemetry, monitor for any arrhythmias. Hyperlipidemia -Continue home Pravastatin. Hypertension -Continue home Dyazide. Monitor BP trends. DVT Prophylaxis: SCDs. Chemical prophylaxis per orthopedic surgeon recommendations. Problem Qualifiers (1) Hip fracture, right: Qualified Codes: S72.001A - Fracture of unspecified part of neck of right femur , initial encounter for closed fracture Sofya Chun MD Aug 11, 2017 11:52
--- NOTE | 2017-08-11 13:13 | PD.ORT.PN ---
Subjective Post Op Day #: 1 Subjective Remarks pain controlled. Objective Vitals Vital Signs Date Time Temp Pulse Resp B/P (MAP) Pulse Ox O2 Delivery O2 Flow Rate FiO2 08/11/17 11:48 98.2 58 20 122/59 (80) 93 08/11/17 08:00 98.3 62 18 152/94 (113) 94 08/11/17 04:29 96.7 56 18 153/89 (110) 95 08/10/17 23:53 98.8 64 18 115/56 (75) 97 08/10/17 20:54 98.3 62 18 126/63 (84) 97 08/10/17 20:19 59 21 121/56 (77) 97 Nasal Cannula 2 08/10/17 20:00 59 22 123/58 (79) 97 Nasal Cannula 2 08/10/17 19:45 57 21 107/60 (76) 97 Nasal Cannula 2 08/10/17 19:30 54 21 102/52 (69) 97 Nasal Cannula 2 08/10/17 19:13 97.9 53 19 98/54 (69) 96 Nasal Cannula 2 08/10/17 19:00 56 18 94/54 (67) 98 Nasal Cannula 2 08/10/17 18:45 59 16 92/50 (64) 97 Nasal Cannula 2 08/10/17 18:35 98.2 64 14 83/49 (60) 96 Nasal Cannula 2 08/10/17 17:00 63 14 137/66 (89) 92 08/10/17 14:00 97.2 68 15 121/63 (82) 95 08/10/17 13:15 I/O 08/10/17 08/10/17 08/10/17 08/11/17 08/11/17 08/11/17 07:00 15:00 23:00 07:00 15:00 23:00 Intake Total 620 ml 1431 ml Output Total 10 ml 750 ml Balance 610 ml 681 ml Intake Oral 120 ml 720 ml IV Total 711 ml Other 500 ml Output Urine Total 750 ml Estimated Blood Loss 10 ml # Voids 1 # Bowel Movements 0 0 Result Diagram: 08/11/17 0600 08/11/17 0600 Other Results Laboratory Tests Test 08/10/17 15:58 Prothromb Time International Ratio 1.1 RATIO Prothrombin Time 11.4 SEC (9.8-11.6) Objective Remarks in bed, nad dressing c/d/i thigh soft neg homans nvi Assessment & Plan Ortho Post Op Day #: 1 Problem List: Assessment and Plan s/p R hip percutaneous pinning NWB ok to maintain dressing unless saturated lovenox d/c planning snf vs home f/up ortho 2 weeks Angelo Bustamante Aug 11, 2017 13:13
[2017-08-11 16:00] VITALS: BP 134/60; PULSE 63; RESP 18; TEMP 98.6; O2SAT 93
[2017-08-11] MEDS: ENOXAPARIN SODIUM 40 MG/0.4 ML SYRINGE SQ SCH (17:35)
--- NOTE | 2017-08-11 19:50 | EKG ---
Date Performed: 08/10/2017 Time Performed: 15:36:00 PTAGE: 82 years EKG: Sinus rhythm WITH FIRST DEGREE AV BLOCK Since previous tracing, no significant change noted ABNORMAL ECG PREVIOUS TRACING : 06/17/2017 12.32 DOCTOR: Lit Thompson Interpretating Date/Time 08/11/2017 19:49:14
[2017-08-11 20:14] VITALS: BP 128/60; PULSE 66; RESP 16; TEMP 99.1; O2SAT 94
[2017-08-11] MEDS: PRAVASTATIN SOD 40 MG TAB PO SCH (20:22)
[2017-08-12 00:14] VITALS: BP 107/55; PULSE 59; RESP 16; TEMP 99.8; O2SAT 94
[2017-08-12 04:14] VITALS: TEMP 98.9
[2017-08-12] MEDS: DEXT 5%-NACL 0.45% 1000 ML INJ 1,000 ML IV SCH ×2 (06:34→20:31)
[2017-08-12] MEDS: DOCUSATE SODIUM 50 MG/SENNA 8.6 MG TAB PO SCH ×2 (08:07→20:36)
[2017-08-12] MEDS: MULTIVITAMINS/MINERALS THERAPEUTIC TAB PO SCH (08:07)
[2017-08-12 08:09] VITALS: BP 143/66; PULSE 65; RESP 18; TEMP 97.3; O2SAT 91
[2017-08-12] MEDS: TRIAMTERENE/HCTZ 37.5 MG/25 MG CAP PO SCH (08:09)
[2017-08-12] MEDS: CARVEDILOL 12.5 MG TAB PO SCH ×2 (08:09→20:36)
[2017-08-12] MEDS: SODIUM CHLORIDE 0.9% FLUSH 10 ML FLUSH IV FLUSH SCH ×2 (08:09→20:36)
--- NOTE | 2017-08-12 09:02 | PD.ORT.PN ---
Subjective Post Op Day #: 2 Subjective Remarks pain controlled. Objective Vitals Vital Signs Date Time Temp Pulse Resp B/P (MAP) Pulse Ox O2 Delivery O2 Flow Rate FiO2 08/12/17 08:09 97.3 65 18 143/66 (91) 91 08/12/17 04:14 98.9 08/12/17 00:14 99.8 59 16 107/55 (72) 94 08/11/17 20:14 99.1 66 16 128/60 (82) 94 08/11/17 16:00 98.6 63 18 134/60 (84) 93 08/11/17 11:48 98.2 58 20 122/59 (80) 93 I/O 08/11/17 08/11/17 08/11/17 08/12/17 08/12/17 08/12/17 07:00 15:00 23:00 07:00 15:00 23:00 Intake Total 1431 ml 240 ml 120 ml Output Total 750 ml 400 ml 300 ml 400 ml Balance 681 ml -400 ml -60 ml -280 ml Intake Oral 720 ml 240 ml 120 ml IV Total 711 ml Output Urine Total 750 ml 400 ml 300 ml 400 ml # Voids 2 # Bowel Movements 0 0 0 Result Diagram: 08/11/17 0600 08/11/17 0600 Objective Remarks in bed, nad dressing c/d/i thigh soft neg homans nvi Assessment & Plan Ortho Post Op Day #: 2 Problem List: Assessment and Plan s/p R hip percutaneous pinning NWB ok to maintain dressing unless saturated lovenox d/c planning snf ortho stable and cleared for d/c f/up ortho 2 weeks Angelo Bustamante Aug 12, 2017 09:02
--- NOTE | 2017-08-12 10:02 | HHI.PR ---
Subjective Remarks Follow-up for surgery Patient's no complaints. He stated that he saw his yesterday. He denies any chest pain, tightness of breathing, palpitation, lightheadedness dizziness. He remains afebrile. He is tolerating oral intake. Objective Vitals Vital Signs Date Time Temp Pulse Resp B/P (MAP) Pulse Ox O2 Delivery O2 Flow Rate FiO2 08/12/17 08:09 97.3 65 18 143/66 (91) 91 08/12/17 04:14 98.9 08/12/17 00:14 99.8 59 16 107/55 (72) 94 08/11/17 20:14 99.1 66 16 128/60 (82) 94 08/11/17 16:00 98.6 63 18 134/60 (84) 93 08/11/17 11:48 98.2 58 20 122/59 (80) 93 I/O 08/11/17 08/11/17 08/11/17 08/12/17 08/12/17 08/12/17 07:00 15:00 23:00 07:00 15:00 23:00 Intake Total 1431 ml 240 ml 120 ml Output Total 750 ml 400 ml 300 ml 400 ml Balance 681 ml -400 ml -60 ml -280 ml Intake Oral 720 ml 240 ml 120 ml IV Total 711 ml Output Urine Total 750 ml 400 ml 300 ml 400 ml # Voids 2 # Bowel Movements 0 0 0 Result Diagram: 08/11/17 0600 08/11/17 0600 Objective Remarks GENERAL: in NAD CARDIOVASCULAR: Regular rate and rhythm without murmurs, gallops, or rubs. RESPIRATORY: Breath sounds equal bilaterally. No accessory muscle use. GASTROINTESTINAL: Abdomen soft, non-tender, nondistended. MUSCULOSKELETAL: No cyanosis, or edema. Medications and IVs Current Medications Acetaminophen (Tylenol) 650 mg ONCE ONCE PO Last administered on 08/10/17 10: 07; Start 08/10/17 at 10:00; Stop 08/10/17 at 10:01; Status DC Sodium Chloride (NS Flush) 2 ml UNSCH PRN IV FLUSH FLUSH AFTER USING IV ACCESS ; Start 08/10/17 at 12:15 Sodium Chloride (NS Flush) 2 ml BID IV FLUSH Last administered on 08/12/17 08: 09; Start 08/10/17 at 21:00 Acetaminophen (Tylenol) 650 mg Q4H PRN PO TEMP > 100.4; Start 08/10/17 at 13:00 Ondansetron HCl (Zofran Inj) 4 mg Q6H PRN IVP NAUSEA OR VOMITING; Start at 13:00; Stop 08/10/17 at 18:41; Status DC Naloxone HCl (Narcan Inj) 0.4 mg UNSCH PRN IV PUSH SEE LABEL COMMENTS; Start 08/10/17 at 12:15 Sennosides (Senokot) 17.2 mg Q12H PRN PO Moderate constipation Last administered on 08/12/17 08:07; Start 08/10/17 at 12:15 Carvedilol (Coreg) 12.5 mg BID PO Last administered on 08/12/17 08:09; Start 08/10/17 at 21:00 Pravastatin Sodium (Pravachol) 40 mg HS PO Last administered on 08/11/17 20:22 ; Start 08/10/17 at 21:00 Triamterene/HCTZ (Dyazide 37.5-25 Mg) 1 cap DAILY PO Last administered on 08:09; Start 08/11/17 at 09:00 Lactated Ringer's 1,000 ml @ 30 mls/hr Q24H PRN IV SEE LABEL COMMENTS; Start 08/10/17 at 17:00; Stop 08/13/17 at 16:59 Sodium Chloride 500 ml @ 30 mls/hr [id number] PRN IV SEE LABEL COMMENTS; Start at 17:00; Stop 08/13/17 at 16:59 Povidone Iodine (Betadine 5% Antisepsis Kit) 1 applic [employer] PRN EACH NARE SEE LABEL COMMENTS; Start 08/10/17 at 17:00; Stop 08/13/17 at 16:59 Chlorhexidine Gluconate (Chlorhexidine 2% Cloth) 3 pack [employer] PRN TOPICAL SEE LABEL COMMENTS; Start 08/10/17 at 17:00; Stop 08/13/17 at 16:59 Metoclopramide HCl (Reglan Inj) 10 mg STK-MED ONCE .ROUTE ; Start 08/10/17 at 17 :36; Stop 08/10/17 at 17:37; Status DC Famotidine (Pepcid Inj) 20 mg STK-MED ONCE .ROUTE ; Start 08/10/17 at 17:36; Stop 08/10/17 at 17:37; Status DC Gentamicin Sulfate (Gentamicin Inj) 240 mg STK-MED ONCE .ROUTE ; Start 08/10/17 at 18:16; Stop 08/10/17 at 18:17; Status DC Dextrose/Sodium Chloride 1,000 ml @ 100 mls/hr Q10H IV Last administered on 18:31; Start 08/10/17 at 18:31 Miscellaneous Information (Post-op Orders (for Pharmacy)) STAT ONCE XX ; Start 08/10/17 at 18:45; Stop 08/10/17 at 18:51; Status DC Enoxaparin Sodium (Lovenox Inj) 40 mg Q24H SQ Last administered on 08/11/17 17 :35; Start 08/11/17 at 17:35; Stop 08/20/17 at 17:36 Senna/Docusate Sodium (Yulissa-Colace) 1 tab BID PO Last administered on 08:07; Start 08/10/17 at 21:00 Cefazolin Sodium 1000 mg/Sodium Chloride 100 ml @ 200 mls/hr Q8H IV Last administered on 08/12/17 04:24; Start 08/10/17 at 20:00; Stop 08/12/17 at 09:19 ; Status DC Miscellaneous Information UNSCH PRN XX SEE LABEL COMMENTS; Start 08/10/17 at 18:45 Miscellaneous Medication ([facility]) ONCE ONCE XX ; Start 08/10/17 at 18:45; Stop 08/10/17 at 18:51; Status DC Acetaminophen/ Hydrocodone Bitart ([place] 7.5-325 Mg) 1 tab Q4H PRN PO PAIN LESS THAN 5 ON SCALE; Start 08/10/17 at 18:45 Acetaminophen/ Hydrocodone Bitart ([place] 7.5-325 Mg) 2 tab Q6H PRN PO PAIN GREATER THAN/EQUAL TO 5; Start 08/10/17 at 18:45 Morphine Sulfate (Morphine Inj) 3 mg Q3H PRN IV PUSH Pain after [employer] discontinued; Start 08/10/17 at 18:45 Ondansetron HCl (Zofran Inj) 4 mg Q4H PRN IVP NAUSEA OR VOMITING; Start at 18:45 Multivitamins/ Minerals Therapeutic (Theragran M Tab) 1 tab DAILY PO Last administered on 08/12/17t 08:07; Start 08/11/17 at 09:00 Diphenhydramine HCl (Benadryl) 25 mg Q6H PRN PO ITCHING; Start 08/10/17 at 18: 45 Miscellaneous Information ALL NURSING DEPARTME... UNSCH PRN .XX SEE LABEL COMMENTS; Start 08/10/17 at 19:00; Stop 08/11/17 at 18:59; Status DC Bisacodyl (Dulcolax Ec) 10 mg DAILY PO ; Start 08/12/17 at 10:30 Magnesium Hydroxide (Milk Of Renee Liabi) 30 ml BID PO ; Start 08/12/17 at 10: 30 Polyethylene Glycol (Miralax) 17 gm DAILY PO ; Start 08/12/17 at 10:30 A/P Problem List: (1) Hip fracture, right ICD Code: S72.001A - Fracture of unspecified part of neck of right femur, initial encounter for closed fracture Status: Acute (2) CAD (coronary artery disease) ICD Code: I25.10 - Atherosclerotic heart disease of [place] coronary artery without angina pectoris (3) Hyperlipidemia ICD Code: E78.5 - Hyperlipidemia, unspecified (4) Hypertension ICD Code: I10 - Essential (primary) hypertension Assessment and Plan 82-year-old male presenting mechanical fall Hip fracture, right - Fracture of unspecified part of neck of right femur, initial encounter for closed fracture -CT of right lower extremity showing subcapital right femoral neck fracture. -s/p Percutaneous screw fixation right femoral neck fracture on 08/10 -Management per orthopedic surgeon. Patient most likely will need to go to a rehabilitation facility. CAD (coronary artery disease) -Continue home Carvedilol. Continue cardiac telemetry, monitor for any arrhythmias. Hyperlipidemia -Continue home Pravastatin. Hypertension -Continue home Dyazide. Monitor BP trends. DVT Prophylaxis: SCDs. Chemical prophylaxis per orthopedic surgeon recommendations. Problem Qualifiers (1) Hip fracture, right: Qualified Codes: S72.001A - Fracture of unspecified part of neck of right femur , initial encounter for closed fracture Sofya Chun MD Aug 12, 2017 10:02
[2017-08-12] MEDS: BISACODYL EC 5 MG TABEC PO SCH (10:20)
[2017-08-12] MEDS: MAGNESIUM HYDROXIDE SUSP 30 ML CUP PO SCH ×2 (10:20→20:36)
[2017-08-12] MEDS: POLYETHYLENE GLYCOL 17 GM PKG PO SCH (10:21)
[2017-08-12 12:08] VITALS: BP 137/63; PULSE 68; RESP 18; TEMP 98.2; O2SAT 92
[2017-08-12 16:54] VITALS: BP 134/67; PULSE 66; RESP 18; TEMP 97.8; O2SAT 93
[2017-08-12] MEDS: ENOXAPARIN SODIUM 40 MG/0.4 ML SYRINGE SQ SCH (16:56)
[2017-08-12] MEDS: PRAVASTATIN SOD 40 MG TAB PO SCH (20:36)
[2017-08-12 20:50] VITALS: BP 141/65; PULSE 69; RESP 18; TEMP 98.9; O2SAT 95
[2017-08-13 00:14] VITALS: BP 138/62; PULSE 65; RESP 18; TEMP 100.2; O2SAT 95
[2017-08-13 04:14] VITALS: TEMP 98.8
[2017-08-13] MEDS: DEXT 5%-NACL 0.45% 1000 ML INJ 1,000 ML IV SCH (06:31)
[2017-08-13 08:00] VITALS: BP 139/66; PULSE 56; RESP 20; TEMP 98.4; O2SAT 93
[2017-08-13] MEDS: BISACODYL EC 5 MG TABEC PO SCH (09:00)
[2017-08-13] MEDS: DOCUSATE SODIUM 50 MG/SENNA 8.6 MG TAB PO SCH (09:00)
[2017-08-13] MEDS: SODIUM CHLORIDE 0.9% FLUSH 10 ML FLUSH IV FLUSH SCH (09:00)
[2017-08-13] MEDS: MAGNESIUM HYDROXIDE SUSP 30 ML CUP PO SCH (09:00)
[2017-08-13] MEDS: POLYETHYLENE GLYCOL 17 GM PKG PO SCH (09:00)
[2017-08-13] MEDS: TRIAMTERENE/HCTZ 37.5 MG/25 MG CAP PO SCH (09:03)
[2017-08-13] MEDS: MULTIVITAMINS/MINERALS THERAPEUTIC TAB PO SCH (09:03)
[2017-08-13] MEDS: CARVEDILOL 12.5 MG TAB PO SCH (09:04)
[2017-08-13] MEDS ORDERED: POTASSIUM CHLORIDE 10 MEQ CONTROLLED RELEASE TAB PO ONE (10:00)
[2017-08-13] MEDS ORDERED: PERI PO (10:06)
--- NOTE | 2017-08-13 14:29 | HHI.DS ---
Discharge Summary Admission Date Aug 10, 2017 at 12:09 Discharge Date: Aug 13, 2017 Admitting Diagnosis right femoral neck fracture (1) Hip fracture, right ICD Code: S72.001A - Fracture of unspecified part of neck of right femur, initial encounter for closed fracture Diagnosis: Principal Status: Acute (2) CAD (coronary artery disease) ICD Code: I25.10 - Atherosclerotic heart disease of [place] coronary artery without angina pectoris Diagnosis: Secondary (3) Hyperlipidemia ICD Code: E78.5 - Hyperlipidemia, unspecified Diagnosis: Secondary (4) Hypertension ICD Code: I10 - Essential (primary) hypertension Diagnosis: Secondary Procedures See hospital course. Brief History - From Admission Mr. Patel is an 82-year-old male patient with a known medical history of CAD with CA and cardiac stent placement, HTN and hyperlipidemia who presented to the ED with complaints of right hip pain. Patient states he sustained a fall yesterday while home, tripping and falling on his right elbow and hip. He denies hitting his head or any LOC, dizziness or lightheadedness. Patient is able to move his right foot internally and externally without any pain. He states that he has pain with mobility and lifting his right leg. Right lower extremity DP and pedal pulses present, warm to touch with no edema. Denies numbness or tingling. Denies any recent illness including fever, chills, headache, chest pain, abdominal pain, n/v/d or dysuria. CT of the right lower extremity showing a subcapital right femoral neck fracture. CBC/BMP: 08/11/17 0600 08/11/17 0600 Significant Findings Laboratory Tests Test 08/10/17 15:58 08/11/17 06:00 Monocytes (%) (Auto) 10.2 % (0.0-8.0) Blood Urea Nitrogen 28 MG/DL (7-18) Creatinine 1.31 MG/DL (0.60-1.30) Random Glucose 114 MG/DL (74-106) Potassium Level 3.2 MEQ/L (3.5-5.1) 3.1 MEQ/L (3.5-5.1) Estimat Glomerular Filtration Rate 52 ML/MIN (>89) 70 ML/MIN (>89) Red Blood Count 4.46 MIL/MM3 (4.50-5.90) Calcium Level 8.3 MG/DL (8.5-10.1) Imaging Last Impressions Lower Extremity CT 08/10/17 0000 Signed Impressions: Service Date/Time: Thursday, August 10, 2017 11:26 - CONCLUSION: 1. Subcapital right femoral neck fracture. Uriah Munguia MD Hip and Pelvis X-Ray 08/10/17 0000 Signed Impressions: Service Date/Time: Thursday, August 10, 2017 10:46 - CONCLUSION: 1. Questionable subcapital femoral neck fracture on the right. Noncontrast CT scan may be warranted. 2. Osteoarthritis of the chest. Uriah Munguia MD Hip X-Ray 08/10/17 0000 Signed Impressions: Service Date/Time: Thursday, August 10, 2017 18:22 - CONCLUSION: 1. Status post compression screw fixation of subcapital femoral neck fracture in anatomic alignment without additional fracture. Otto Thomas MD PE at Discharge GENERAL: in NAD CARDIOVASCULAR: Regular rate and rhythm without murmurs, gallops, or rubs. RESPIRATORY: Breath sounds equal bilaterally. No accessory muscle use. GASTROINTESTINAL: Abdomen soft, non-tender, nondistended. MUSCULOSKELETAL: No cyanosis, or edema. Pt update on day of discharge Follow-up for hip fracture repair Patient has no complaints. He states doing well. He stated he had a bowel movement and is urinating. Patient remains afebrile. No acute events. Hospital Course 82-year-old male presenting mechanical fall Hip fracture, right - Fracture of unspecified part of neck of right femur, initial encounter for closed fracture -CT of right lower extremity showing subcapital right femoral neck fracture. -s/p Percutaneous screw fixation right femoral neck fracture on 08/10 -Management per orthopedic surgeon. -Due to the medical complexity patient was discharged to inpatient rehabilitation in stable condition. CAD (coronary artery disease)/hyperlipidemia/hypertension. -Home medication was resumed. In which patient was medically stable throughout his hospitalization. Pt Condition on Discharge: Stable Discharge Disposition: Rehab Inpatient Discharge Time: <= 30 minutes Discharge Instructions DIET: Follow Instructions for: Heart Healthy Diet Activities you can perform: See Additionl Instruction Other Activity Instructions: as directed by Orthopedic Surgeon Follow up Referrals: Orthopedics - 2 Weeks with Angelo Wood MD PCP Follow-up @ DR. DOMINGO New Medications: Aspirin (Aspirin Low Dose) 81 Mg Chew 81 MG CHEW DAILY for Prevent Blood Clot, #30 TAB 0 Refills Enoxaparin Inj (Lovenox Inj) 40 Mg/0.4 Ml Syr 40 MG SQ DAILY for Blood Clot Prevention, #7 SYRINGE 0 Refills Hydrocodone-Acetaminophen ([place]) 7.5-325 mg Tab 1-2 TAB PO Q6H PRN for PAIN, #90 TAB 0 Refills Continued Medications: Carvedilol (Carvedilol) 12.5 Mg Tab 12.5 MG PO BID, #60 TAB 0 Refills Cholecalciferol (Vitamin D3) 2,000 Unit Cap 2000 UNITS PO DAILY for Nutritional Supplement, #1 BOTTLE 0 Refills Pravastatin (Pravastatin) 40 Mg Tab 40 MG PO HS for Cholesterol Management, #30 TAB 0 Refills Triamterene-Hydrochlorothiazide (Dyazide) 37.5-25 Mg Cap 1 CAP PO DAILY, #30 CAP 0 Refills Discontinued Medications: Aspirin DR (Aspirin EC) 81 Mg Tabdr 81 MG PO DAILY, TAB 0 Refills Sofya Chun MD Aug 13, 2017 14:29
== END 2017-08-13 11:48 | DRG 482 ==
LOC: PHED 08:53 → PHEDA 12:09 → N06A 14:06
PROVIDERS: ADMIT Family Medicine; ATTEND Family Medicine
PROC: 0QH634Z Insertion of Internal Fixation Device into Right Upper Femur, Percutaneous Approach (ICD-10-PCS; principal; 2017-08-10 17:42)
DX: S72.011A Unspecified intracapsular fracture of right femur, initial encounter for closed fracture (principal); W01.0XXA Fall on same level from slipping, tripping and stumbling without subsequent striking against object, initial encounter; I10 Essential (primary) hypertension; I25.10 Atherosclerotic heart disease of native coronary artery without angina pectoris; Z95.5 Presence of coronary angioplasty implant and graft; I25.2 Old myocardial infarction; E78.5 Hyperlipidemia, unspecified; Z86.711 Personal history of pulmonary embolism; Z79.82 Long term (current) use of aspirin; M19.90 Unspecified osteoarthritis, unspecified site; Z87.891 Personal history of nicotine dependence
CPT/HCPCS: 73502; 73700; 76000; 80048; 85025; 85610; 85730; 93005; 94150; C1713; C1769; J0690; J1580; J1650; J2765